=== PATIENT | female | born 1995 | race Caucasian/White ===

== ENCOUNTER 2024-06-22 11:23 | Outpatient (CLI) | payer BC ==
[2024-06-22 11:46] VITALS: BP 127/79; PULSE 88; RESP 18; TEMP 98.3
--- NOTE | 2024-06-22 13:04 | P.MSEPDOC ---
Presenting Problems - Arrival Data Date of Arrival on Unit: 06/22/24 Time of Arrival on Unit: 11:25 Mode of Transport: Ambulatory - Complaint OB-Reason for Admission/Chief Complaint: Decreased Movement Comment: pt states she has not felt baby move in 4 days Medical History - Information : 2 Para: 1 Term: 1 : 0 Abortions: Spontaneous or Elective: 0 Number of Living Children: 1 - Gestational Age Gestational Age by PAIGE (wks/days): 23 Weeks and 4 Days Review of Systems - Review of Systems Constitutional: No problems Breast: No problems ENT: No problems Cardiovascular: No problems Respiratory: No problems Gastrointestinal: No problems Genitourinary: No problems Musculoskeletal: No problems Neurological: No problems Skin: No problems Vital Signs - Temperature Temperature: 98.3 F Temperature Source: Temporal Artery Scan - Pulse Right Brachial Pulse Rate: 88 Pulse Assessment Method: Automatic Cuff - Respirations Respiratory Rate: 18 Oxygen Delivery Method: Room Air O2 Sat by Pulse Oximetry: 100 - Blood Pressure Right Arm Blood Pressure: 127/79 Blood Pressure Mean: 95 Blood Pressure Source: Automatic Cuff Medical Screen Scoring - Cervical Exam Membranes: Intact - Uterine Contractions Resting: Soft to palpation - Assessment - Baby A Baseline FHR: 155 Physician Notification - Physician Notified Physician Notified Date: 06/22/24 Physician Notified Time: 11:45 Physician: Pily العراقي Order Received: Yes - Notification Comment Comment: D/C Home with instructions Maternal Triage Index - Maternal Triage Index Presenting for scheduled procedure w/no complaint: No - Stat/Priority 1 Stat Priority 1: No - Urgent/Priority 2 Urgent Priority 2: No - Prompt/Priority 3 Prompt Priority 3: No - Non-Urgent/Priority 4 Non-Urgent Priority 4: Yes Criteria Met for Priority 4: Decreased movement at 23 weeks gestation Disposition - Disposition OB Disposition: Discharge to home Discharge Date: 06/22/24 Discharge Time: 11:48 I agree with the RN Medical Screening Exam: Yes Physician's MSE Comment: I have neither seen nor examined the patient Case reviewed; plan agreed upon as documented in EMR&OBIX.: Yes Diagnosis: DECREASED MOVEMENTS, SECOND TRIMESTER, FETUS 1
== END 2024-06-22 11:49 | disposition home or self-care (01) ==
LOC: FBPOP 11:23
PROVIDERS: ATTEND Obstetrics & Gynecology
DX: O36.8121 Decreased fetal movements, second trimester, fetus 1 (principal); Z3A.23 23 weeks gestation of pregnancy; Z88.0 Allergy status to penicillin
CPT/HCPCS: 99213

== ENCOUNTER 2024-09-15 20:50 | Outpatient (CLI) | payer BC ==
[2024-09-15] MEDS ORDERED: LACTATED RINGERS 1,000 ML IV ONE (21:58)
[2024-09-15 22:12] LABS: Appearance,Urine Clear (Clear); Bilirubin,Urine Negative (Negative); Blood,Urine Negative (Negative); Color,Urine Colorless; Glucose,Urine (UA) Negative (Negative); Ketones,Urine Negative (Negative); Leukocyte Esterase,Urine Trace (Negative); Mucus,Urine Rare /hpf; Nitrite,Urine Negative (Negative); Protein,Urine Negative (Negative); RBC,Urine <1 /hpf (0-5); Specific Gravity,Urine 1.009 (1.001-1.035); Squamous Epithelial Cell,Urine <1 /hpf (0-4); Urobilinogen,Urine <2.0 mg/dL (<2.0); WBC,Urine 2 /hpf (0-5)
[2024-09-15 23:03] VITALS: BP 131/75; PULSE 98; RESP 16; TEMP 97.5
--- NOTE | 2024-11-07 13:27 | P.MSEPDOC ---
Presenting Problems - Arrival Data Date of Arrival on Unit: 09/15/24 Time of Arrival on Unit: 20:50 Mode of Transport: Ambulatory - Complaint OB-Reason for Admission/Chief Complaint: Possible Onset of Labor Comment: Patient present to triage with report of contractions that began last night and increased in intensity since 1100 and is now ktah every 3- 5minutes. Patient denies any complications this . Denies ROM. Medical History - Information : 2 Para: 1 Term: 1 : 0 Abortions: Spontaneous or Elective: 0 Number of Living Children: 1 - Gestational Age Gestational Age by PAIGE (wks/days): 36 Weeks and 2 Days Review of Systems - Review of Systems Constitutional: No problems Breast: No problems ENT: No problems Cardiovascular: No problems Respiratory: No problems Gastrointestinal: No problems Genitourinary: No problems Musculoskeletal: No problems Neurological: No problems Skin: No problems Vital Signs - Temperature Temperature: 97.5 F Temperature Source: Temporal Artery Scan - Pulse Right Brachial Pulse Rate: 98 Pulse Assessment Method: Automatic Cuff - Respirations Respiratory Rate: 16 Oxygen Delivery Method: Room Air O2 Sat by Pulse Oximetry: 100 - Blood Pressure Right Arm Blood Pressure: 131/75 Blood Pressure Mean: 93 Blood Pressure Source: Automatic Cuff Medical Screen Scoring - Cervical Exam Dilation (cm): 0 Effacement (%): 50 Station: -3 Membranes: Intact - Uterine Contractions Frequency From (mins): 2 Frequency To (mins): 7 Duration From (seconds): 40 Duration To (seconds): 70 Intensity: Mild Resting: Soft to palpation - Assessment - Baby A Baseline FHR: 130 Heart Rate - NICHD Category: Category I (Normal) NST: Reactive Physician Notification - Physician Notified Physician Notified Date: 09/15/24 - Notification Comment Comment: Dr. العراقي on unit. Orders received for u/a and 1L LR bolus. If patient remains finger tip/50/-3 and contractions space out, patient to be discharged home. Maternal Triage Index - Stat/Priority 1 Stat Priority 1: No - Urgent/Priority 2 Urgent Priority 2: No - Prompt/Priority 3 Prompt Priority 3: Yes Criteria Met for Priority 3: 36 2/7 contractions Disposition - Disposition OB Disposition: Discharge to home Discharge Date: 09/15/24 Discharge Time: 22:45 I agree with the RN Medical Screening Exam: Yes Physician's MSE Comment: I have neither seen nor examined the patient Case reviewed; plan agreed upon as documented in EMR&OBIX.: Yes Diagnosis: MATERNAL CARE FOR PROBLEM, UNSP, THIRD * DO NOT USE *
== END 2024-09-15 22:45 ==
LOC: FBPOP 20:50
PROVIDERS: ATTEND Obstetrics & Gynecology
DX: Z53.9 Procedure and treatment not carried out, unspecified reason (principal)
CPT/HCPCS: 59025; 81001; 96360; 96365; 96366; 99214

== ENCOUNTER 2024-09-25 09:01 | Outpatient (CLI) | payer BC ==
[2024-09-25 11:00] VITALS: BP 138/80; PULSE 100; RESP 16; TEMP 98
[2024-09-25 11:34] LABS: Amorphous Sediment,Urine Occasional /hpf; Appearance,Urine Cloudy (Clear); Bacteria,Urine Rare /hpf; Bilirubin,Urine Negative (Negative); Blood,Urine Small (Negative); Color,Urine Colorless; Glucose,Urine (UA) Negative (Negative); Ketones,Urine Negative (Negative); Leukocyte Esterase,Urine Moderate (Negative); Mucus,Urine Rare /hpf; Nitrite,Urine Negative (Negative); Protein,Urine Negative (Negative); RBC,Urine 2 /hpf (0-5); Specific Gravity,Urine 1.013 (1.001-1.035); Squamous Epithelial Cell,Urine 9 /hpf (0-4); Urobilinogen,Urine <2.0 mg/dL (<2.0); WBC,Urine 4 /hpf (0-5)
--- NOTE | 2024-10-04 11:47 | P.MSEPDOC ---
Presenting Problems - Arrival Data Date of Arrival on Unit: 09/25/24 Time of Arrival on Unit: 09:01 Mode of Transport: Ambulatory - Complaint OB-Reason for Admission/Chief Complaint: Possible Onset of Labor Comment: 37.1 contractions Medical History - Information : 2 Para: 1 Term: 1 : 0 Abortions: Spontaneous or Elective: 0 Number of Living Children: 1 - Gestational Age Gestational Age by PAIGE (wks/days): 37 Weeks and 1 Days - History Complications: Other Comment: Polyhydramnios Review of Systems - Review of Systems Constitutional: No problems Breast: No problems ENT: No problems Cardiovascular: No problems Respiratory: No problems Gastrointestinal: No problems Genitourinary: No problems Musculoskeletal: No problems Neurological: No problems Skin: No problems Vital Signs - Temperature Temperature: 98 F Temperature Source: Oral - Pulse Right Sitting Pulse Rate: 100 Pulse Assessment Method: Automatic Cuff - Respirations Respiratory Rate: 16 Oxygen Delivery Method: Room Air O2 Sat by Pulse Oximetry: 98 - Blood Pressure Right Arm Sitting Blood Pressure: 138/80 Blood Pressure Mean: 99 Blood Pressure Source: Automatic Cuff Medical Screen Scoring - Uterine Contractions Frequency From (mins): 4 Frequency To (mins): 6 Duration From (seconds): 60 Duration To (seconds): 90 Intensity: Mild Resting: Soft to palpation - Assessment - Baby A Baseline FHR: 130 Heart Rate - NICHD Category: Category I (Normal) NST: Reactive Physician Notification - Physician Notified Physician Notified Date: 09/25/24 Physician Notified Time: 12:07 Physician: Dexter Sarmiento New Order Received: Yes (send UA, if wnl then d/c) - Notification Comment Comment: UA some abnormals, reported to Torsten in department and seeing pt at bedside Maternal Triage Index - Maternal Triage Index Presenting for scheduled procedure w/no complaint: No - Stat/Priority 1 Stat Priority 1: No - Urgent/Priority 2 Urgent Priority 2: No - Prompt/Priority 3 Prompt Priority 3: No - Non-Urgent/Priority 4 Non-Urgent Priority 4: Yes Criteria Met for Priority 4: 37.1 contractions Disposition - Disposition OB Disposition: Triage, Discharge to home Discharge Date: 09/25/24 Discharge Time: 12:30 I agree with the RN Medical Screening Exam: Yes Case reviewed; plan agreed upon as documented in EMR&OBIX.: Yes Diagnosis: RELATED CONDITIONS, UNSPECIFIED, THIRD TRIMESTER
== END 2024-09-25 12:30 | disposition home or self-care (01) ==
LOC: FBPOP 09:01
PROVIDERS: ATTEND Obstetrics & Gynecology
DX: O26.893 Other specified pregnancy related conditions, third trimester (principal); Z3A.37 37 weeks gestation of pregnancy; Z88.0 Allergy status to penicillin
CPT/HCPCS: 59025; 81001; 99213

== ENCOUNTER 2024-10-03 14:07 | Inpatient (IN) | payer BC ==
[2024-10-03] MEDS ORDERED: LIDOCAINE 0.5% (PF) 5 MG/ML (50 ML SDV) SQ PRN (14:58)
[2024-10-03] MEDS ORDERED: TRANEXAMIC 1,000 MG/100ML-NACL 1,000 MG in EMPTY BAG 1 BAG IV PRN (14:58)
[2024-10-03] MEDS ORDERED: miSOPROStoL 200 MCG TAB PO PRN (14:58)
[2024-10-03] MEDS ORDERED: CARBOPROST TROMETHAMINE 250 MCG/ML 1 ML AMP IM PRN (14:58)
[2024-10-03] MEDS ORDERED: METHYLERGONOVINE 0.2 MG/ML 1 ML AMP IM PRN (14:58)
[2024-10-03] MEDS ORDERED: miSOPROStoL 200 MCG TAB RECTAL PRN (14:58)
[2024-10-03] MEDS ORDERED: TERBUTALINE 1 MG/ML VIAL SQ PRN (14:58)
[2024-10-03] MEDS ORDERED: OXYTOCIN 10 UNIT/ML 1 ML VIAL IM PRN (14:58)
[2024-10-03 15:21] LABS: Basophils # (A) 0.01 10*3/uL (0.00-0.10); Basophils % (A) 0.1 %; Eosinophils # (A) 0.07 10*3/uL (0.04-0.35); Eosinophils % (A) 0.6 %; HCT 31.5 % (37.2-46.3); HGB 9.9 g/dL (12.0-15.0); Lymphocytes # (A) 1.62 10*3/uL (0.90-5.00); Lymphocytes % (A) 13.1 %; MCH 25.1 pg (27.0-32.0); MCHC 31.4 g/dL (32.0-37.0); MCV 79.9 fL (80.0-97.0); Mean Platelet Volume 11.3 fL (9.5-12.2); Monocytes # (A) 1.04 10*3/uL (0.20-1.00); Monocytes % (A) 8.4 %; Neutrophils # (A) 9.51 10*3/uL (1.80-7.70); Neutrophils % (A) 76.9 %; Platelet Count 240 10*3/uL (140-440); RBC 3.94 10*6/uL (4.10-5.20); RDW 17.1 % (11.5-14.5); WBC 12.36 10*3/uL (4.50-10.00)
--- NOTE | 2024-10-03 15:58 | US ---
EXAMINATION TYPE: US OB limited DATE OF EXAM: 10/03/2024 COMPARISON: NONE CLINICAL INDICATION: Female, 28 years old with history of position; Patient denies any signs, s ymptoms, or relevant history TECHNIQUE:: FINDINGS: PRESENTATION: Vertex LIE: Longitudinal HEART RATE: 140 bpm RHYTHM: Normal IMPRESSION: 1. Single intrauterine gestation with cardiac activity measuring 152 and 140 bpm [facility], , 10/03/2024 3:56 PM
[2024-10-03] MEDS: LACTATED RINGERS 1,000 ML IV SCH (16:30)
[2024-10-03] MEDS: OXYTOCIN 30 UNITS/500 ML NS 30 UNIT in SALINE 1 500ML.BAG IV SCH (16:32)
[2024-10-03] MEDS ORDERED: BUTORPHANOL 1 MG/ML 1 ML VIAL IV PRN (18:29)
--- NOTE | 2024-10-03 18:35 | P.HPOB ---
History of Present Illness H&P Date: 10/03/24 Chief Complaint: 38+ weeks, early labor, polyhydramnios, spontaneous rupture The patient is a 28-year-old 2 para 1-0-0-1 admitted at 38+ weeks as established by last menstrual period and confirmed by 10-week ultrasound. She presents today with complaints of possible rupture of membranes which is confirmed in triage though she does not have continuous leaking. On admission, all signs are reassuring with a category 1 heart rate tracing. Her has been essentially uncomplicated though she was found in the third trimester with polyhydramnios and has had weekly reassuring testing since the diagnosis. Group B strep status is negative. Obstetrical history: 2 para 1-0-0-1 with 1 term vaginal delivery without complications. Current statistics are listed in history of present illness. EDC of 10/15/2024 was established by last menstrual period and confirmed by 10-week ultrasound. Laboratory workup type of A+ with a negative antibody screen. Rubella status is immune. The remainder of the laboratory workup was within normal limits. 1 hour Glucola was normal and group B strep status is negative. Gynecologic history: Unremarkable with no history of any infections to include STDs. Review of Systems Review of systems is confined to history of present illness. Past Medical History Past Medical History: No Reported History History of Any Multi-Drug Resistant Organisms: None Reported Past Surgical History: No Surgical Hx Reported Past Anesthesia/Blood Transfusion Reactions: No Reported Reaction Past Psychological History: No Psychological Hx Reported Smoking Status: Never smoker Past Alcohol Use History: None Reported Past Drug Use History: None Reported - Past Family History Mother Family Medical History: No Reported History Medications and Allergies Home Medications Medication Instructions Recorded Confirmed Type Omeprazole [PriLOSEC] 20 mg PO AC-BID 01/11/23 10/03/24 History Vit No.179/Iron/Folic 1 each PO DAILY 02/11/23 10/03/24 History [ Tablet] Sertraline [Zoloft] 25 mg PO DAILY 09/15/24 10/03/24 History Allergies Allergy/AdvReac Type Severity Reaction Status Date / Time Penicillins Allergy Rash/Hives Verified 10/03/24 14:27 Exam Vital Signs Temp Pulse Resp BP Pulse Ox 10/03/24 14:58 98.0 F 115 H 16 130/82 98 Intake and Output 10/03/24 10/03/24 10/03/24 06:59 14:59 22:59 Other: Weight 99.79 kg In general, this is a well-developed dress. Her heart has a regular rhythm and rate without murmur. Her lungs are clear to auscultation bilaterally in all jackson. Her abdomen is gravid, nondistended, has normal active bowel sounds, soft, nontender, and without any palpable masses aside from the uterine fundus. Her extremities are without any cyanosis, clubbing, or significant edema and are nontender to palpation bilaterally. Digital cervical examination demonstrates her cervix to be 1 to 2 cm dilated, approximately 50% effaced, with the vertex and presentation at -3 station. Artificial rupture of membranes of the bag of water in front of the head is carried out to release more fluid, fluid is clear. Results Result Diagrams: 10/03/24 15:10 Abnormal Lab Results - Last 24 Hours (Table) 10/03/24 Range/Units 15:10 WBC 12.36 H (4.50-10.00) 10*3/uL RBC 3.94 L (4.10-5.20) 10*6/uL Hgb 9.9 L (12.0-15.0) g/dL Hct 31.5 L (37.2-46.3) % MCV 79.9 L (80.0-97.0) fL MCH 25.1 L (27.0-32.0) pg MCHC 31.4 L (32.0-37.0) g/dL Immature Gran # 0.11 H (0.00-0.04) 10*3/uL Neutrophils # 9.51 H (1.80-7.70) 10*3/uL Monocytes # 1.04 H (0.20-1.00) 10*3/uL Assessment and Plan (1) Polyhydramnios Current Visit: Yes Status: Acute Code(s): O40.9XX0 - POLYHYDRAMNIOS, UNSP TRIMESTER, NOT APPLICABLE OR UNSP SNOMED Code(s): 76525076 (2) Active labor at term Current Visit: No Status: Acute Code(s): WPX5690 - SNOMED Code(s): 81351762 (3) Spontaneous rupture of amniotic membranes Current Visit: No Status: Acute Code(s): ESK8055 - SNOMED Code(s): 520662998 Plan: The patient has been admitted for active management of labor augmentation has been started and she has had rupture of membranes of the bag of water in front of the head. She will have close maternal and surveillance and expectant management will be practiced. She is a good candidate for either IV or epidural analgesia, which ever she may choose.
[2024-10-03] MEDS: CALCIUM CARBONATE 500 MG CHEWABLE PO PRN (19:11)
[2024-10-03] MEDS ORDERED: fentaNYL (PF) 50 MCG/ML 5 ML AMP ONE (21:25)
[2024-10-03] MEDS ORDERED: SODIUM CHLORIDE 0.9% 250 ML BAG ONE (21:25)
[2024-10-03] MEDS ORDERED: ROPIVACAINE 5 MG/ML 30 ML VIAL ONE (21:25)
[2024-10-03] MEDS: ceFAZolin 2 GM in DEXTROSE 5% IN WATER 50 ML IVPB ONE (23:55)
--- NOTE | 2024-10-04 02:25 | P.PROBDLV ---
Vaginal Delivery Note - . Vaginal Delivery Note: The patient is a 28-year-old 2 para 1-0-0-1 as determined by good dating parameters who presented to labor and delivery at 38-2/7 weeks with documented spontaneous rupture of membranes for clear fluid. Her has been uncomplicated aside from a third trimester diagnosis of polyhydramnios for which she had weekly reassuring testing after the diagnosis. Group B strep status is negative. On labor and delivery, all signs are reassuring with a category 1 heart rate tracing. As she was making little progress, she had Pitocin augmentation started and then underwent rupture of membranes for the amniotic membranes ahrad of the head to further release fluid. She made relatively slow progress through the latent phase of labor and had an epidural catheter placed around the onset of the active phase of labor. Antibiotic prophylaxis was started at approximately 14 hours post rupture. She then made rapid progress through the remainder of the active phase of labor to complete and +2 station. She pushed course of approximately 3 contractions to a normal spontaneous vaginal delivery of a viable 7 pound 9 ounce baby girl with Apgars of 9 at 1 minute and 10 at 5 minutes delivered in the direct occiput anterior position. There was a nuchal cord x 1 which was reduced following delivery of the . The placenta delivered spontaneously, intact, and grossly normal with a grossly normal, marginally inserted three-vessel cord. There were no lacerations of the perineum, vagina, or cervix. Estimated blood loss for the case was approximately 100 mL. There were no complications. All sponge, instrument, and needle counts were correct. Both mother and are resting comfortably in recovery.
[2024-10-04] MEDS ORDERED: OXYTOCIN 30 UNITS/500 ML NS 30 UNIT in SALINE 1 500ML.BAG IV SCH (02:30)
[2024-10-04] MEDS ORDERED: diphenhydrAMINE 25 MG CAP PO PRN (03:37)
[2024-10-04] MEDS ORDERED: diphenhydrAMINE 50 MG/ML 1 ML VIAL IVP PRN ×2 (03:37)
[2024-10-04] MEDS ORDERED: HYDROCORTISONE 2.5% RECTAL CREAM 30 GM TUBE RECTAL PRN (03:37)
[2024-10-04] MEDS ORDERED: SIMETHICONE 80 MG CHEWABLE PO PRN (03:37)
[2024-10-04] MEDS ORDERED: diphenhydrAMINE 50 MG CAP PO PRN (03:37)
[2024-10-04] MEDS ORDERED: LANOLIN CREAM 1 GM TUBE TOPICAL PRN (03:37)
[2024-10-04] MEDS ORDERED: BENZOCAINE/MENTHOL SPRAY 1 GM/SPRAY AEROSOL TOPICAL PRN (03:37)
[2024-10-04] MEDS ORDERED: ZOLPIDEM 5 MG TAB PO PRN (03:37)
[2024-10-04] MEDS: SENNOSIDES-DOCUSATE SODIUM 1 EACH TAB PO SCH (08:39)
[2024-10-04] MEDS: IBUPROFEN 800 MG TAB PO SCH (08:39)
--- NOTE | 2024-10-04 11:14 | P.PNOBGVD ---
Subjective - Subjective Patient reports: Reports appetite normal, Reports voiding normally, Reports pain well controlled, Reports ambulating normally : doing well, nursing well Objective - Latest Vital Signs Latest vital signs: Vital Signs Temp Pulse Resp BP Pulse Ox 10/04/24 08:00 98 F 103 H 16 130/80 10/04/24 04:09 96.3 F L 88 16 122/66 98 10/04/24 03:54 97.9 F 74 16 120/68 97 10/04/24 03:39 98.5 F 78 16 117/58 97 10/04/24 03:24 98.5 F 73 16 112/60 96 10/04/24 03:09 97.2 F L 97 16 112/61 96 10/04/24 02:54 83 16 119/67 10/04/24 02:39 97.9 F 78 16 114/69 10/04/24 02:24 92 16 124/85 10/04/24 02:09 97.9 F 108 H 16 128/72 10/03/24 14:58 98.0 F 115 H 16 130/82 98 Intake and Output 10/03/24 10/04/24 10/04/24 22:59 06:59 14:59 Intake Total 186.033 Output Total 225 Balance -38.967 Intake: Intake, IV Titration 186.033 Amount Oxytocin 30 Units/500 ml 186.033 Ns 30 unit In Saline 1 500ml.bag @ Per Protocol IV .Q0M [facility] Rx#:[id number] Output: Output, Estimated Blood 100 Loss Amount Output, Quantitative 125 Blood Loss Other: # Voids 2 1 1 - Exam Extremities: Present: normal Abdomen: Present: normal appearance, soft Uterus: Present: normal, firm (The uterine fundus is tonic and minimally tender around the umbilicus.) - Labs Labs: Abnormal Lab Results - Last 24 Hours (Table) 10/03/24 Range/Units 15:10 WBC 12.36 H (4.50-10.00) 10*3/uL RBC 3.94 L (4.10-5.20) 10*6/uL Hgb 9.9 L (12.0-15.0) g/dL Hct 31.5 L (37.2-46.3) % MCV 79.9 L (80.0-97.0) fL MCH 25.1 L (27.0-32.0) pg MCHC 31.4 L (32.0-37.0) g/dL Immature Gran # 0.11 H (0.00-0.04) 10*3/uL Neutrophils # 9.51 H (1.80-7.70) 10*3/uL Monocytes # 1.04 H (0.20-1.00) 10*3/uL Assessment and Plan (1) Polyhydramnios Current Visit: Yes Status: Acute Code(s): O40.9XX0 - POLYHYDRAMNIOS, UNSP TRIMESTER, NOT APPLICABLE OR UNSP SNOMED Code(s): 15366919 (2) Active labor at term Current Visit: Yes Status: Acute Code(s): OKD3296 - SNOMED Code(s): 75056941 (3) Spontaneous rupture of amniotic membranes Current Visit: Yes Status: Acute Code(s): UKD7808 - SNOMED Code(s): 1 61516838 (4) Normal spontaneous vaginal delivery Current Visit: Yes Status: Acute Code(s): O80 - ENCOUNTER FOR FULL-TERM UNCOMPLICATED DELIVERY SNOMED Code(s): 66152718 Plan: As today is day of delivery, we will continue routine care. I would anticipate discharge home tomorrow pending no complications
[2024-10-04] MEDS: ACETAMINOPHEN TAB 500 MG TAB PO SCH (20:15)
[2024-10-04 23:53] VITALS: TEMP 98
[2024-10-05 05:29] LABS: Basophils # (A) 0.02 10*3/uL (0.00-0.10); Basophils % (A) 0.2 %; Eosinophils # (A) 0.14 10*3/uL (0.04-0.35); Eosinophils % (A) 1.2 %; HCT 26.2 % (37.2-46.3); Lymphocytes # (A) 2.19 10*3/uL (0.90-5.00); Lymphocytes % (A) 19.5 %; MCH 25.3 pg (27.0-32.0); MCHC 30.9 g/dL (32.0-37.0); MCV 81.9 fL (80.0-97.0); Mean Platelet Volume 12.1 fL (9.5-12.2); Monocytes # (A) 1.02 10*3/uL (0.20-1.00); Monocytes % (A) 9.1 %; Neutrophils # (A) 7.77 10*3/uL (1.80-7.70); Neutrophils % (A) 69.3 %; Platelet Count 173 10*3/uL (140-440); RDW 16.8 % (11.5-14.5); WBC 11.22 10*3/uL (4.50-10.00)
[2024-10-05 05:32] LABS: HGB 8.1 g/dL (12.0-15.0)
[2024-10-05 08:57] VITALS: BP 132/84; PULSE 81; RESP 16
--- NOTE | 2024-10-05 10:28 | P.DS ---
Providers Date of admission: 10/03/24 14:49 Expected date of discharge: 10/05/24 Attending physician: Dexter Sarmiento Primary care physician: Stated None - Discharge Diagnosis(es) (1) Polyhydramnios Current Visit: Yes Status: Acute (2) Active labor at term Current Visit: Yes Status: Acute (3) Spontaneous rupture of amniotic membranes Current Visit: Yes Status: Acute (4) Normal spontaneous vaginal delivery Current Visit: Yes Status: Acute Hospital Course: The patient is a 28-year-old G1 admitted at 38+ weeks by good dating. With documented spontaneous rupture of membranes for clear fluid her was complicated by a third trimester finding of significant pelvic testing on a weekly basis thereafter. Group B strep status was negative. On labor and delivery, all signs were reassuring with a category 1 heart rate tracing. She had Pitocin augmentation started and underwent artificial rupture of membranes of a forebag for a more significant amount of clear fluid progressed to the active phase of labor and had an epidural catheter placed for analgesia. She then progressed rapidly to complete and pushed to a normal spontaneous vaginal delivery of a viable 7 pound 9 ounce baby girl with Apgars of 9 at 1 minute and 10 at 5 minutes. Her course was unremarkable with vital signs remaining stable and her temperature was afebrile throughout. She was deemed stable for discharge on day #1 and was discharged home to follow-up in the office in 6 weeks time routinely. Discharge instructions included calling for any significantly increased bleeding or foul-smelling lochia, significantly increased fever or abdominal pain, perineal complaints, breast complaints, or anything else that concerned her. She was additionally instructed to have nothing in the vagina for at least 6 weeks time to include intercourse. She understood her instructions and agrees to follow-up as noted above. Discharge medications included continued vitamins as she has opted to breast-feed as well as [id number] analgesic pain medications. Maternal blood type is A+ and rubella status is immune. She was noted to be somewhat anemic and was instructed to use iron sulfate for a month on a daily basis to rebuild her hemoglobin. Procedures: #1. Pitocin augmentation #2. Artificial rupture of membranes #3. Epidural analgesia #4. Normal spontaneous vaginal delivery Patient Condition at Discharge: Stable Plan - Discharge Summary Discharge Rx Participant: No New Discharge Prescriptions: No Action Omeprazole [PriLOSEC] 20 mg PO AC-BID Vit No.179/Iron/Folic [ Tablet] 1 each PO DAILY Sertraline [Zoloft] 25 mg PO DAILY Discharge Medication List Omeprazole [PriLOSEC] 20 mg PO AC-BID 01/11/23 [History] Vit No.179/Iron/Folic [ Tablet] 1 each PO DAILY 02/11/23 [History] Sertraline [Zoloft] 25 mg PO DAILY 09/15/24 [History] Follow up Appointment(s)/Referral(s): Dexter Sarmiento MD [STAFF PHYSICIAN] - 6 Weeks Discharge Disposition: HOME SELF-CARE
== END 2024-10-05 11:55 | disposition home or self-care (01) | DRG 807 ==
LOC: FBPOP 14:07 → 4FBP 14:49
PROVIDERS: ADMIT Obstetrics & Gynecology; ATTEND Obstetrics & Gynecology
PROC: 10907ZC Drainage of Amniotic Fluid, Therapeutic from Products of Conception, Via Natural or Artificial Opening (ICD-10-PCS; 2024-10-03)
PROC: 10E0XZZ Delivery of Products of Conception, External Approach (ICD-10-PCS; principal; 2024-10-04)
DX: O42.02 Full-term premature rupture of membranes, onset of labor within 24 hours of rupture (principal); O40.3XX0 Polyhydramnios, third trimester, not applicable or unspecified; O99.02 Anemia complicating childbirth; O69.81X0 Labor and delivery complicated by cord around neck, without compression, not applicable or unspecified; Z79.899 Other long term (current) drug therapy; Z88.0 Allergy status to penicillin; Z3A.38 38 weeks gestation of pregnancy; Z37.0 Single live birth
CPT/HCPCS: 59025; 76815; 85025; 86850; 86900; 86901; 99213